=== PATIENT | male | born 1990 | race African-American/Black ===

== ENCOUNTER 2019-07-19 03:41 | Emergency (ER) | payer OTHER ==
[~2019-07-19] VITALS: Ht 180.3 cm; Wt 136.1 kg
[~2019-07-19 03:41] MED LIST: CARAFATE 1 GM TA1 GM PO; FLONASE 0.05%50 MCG NASAL; IBUPROFEN 800800 MG PO; NOHOMEMEDICATIONS; NORCO 5-325 TA1 EACH PO; ONDANSETRON HCL4 M2 PO; PENICILLIN V P500 MG PO; PROTONIX40 MG PO; REGLAN 10 MG TA10 MG PO; REGLAN 5 MG TAB5 M1 PO; TRAMADOL 50 MG50 MG PO; TYLENOL COLD H1 EACH PO
[2019-07-19 03:45] VITALS: BP 153/108
[2019-07-19] MEDS ORDERED: TRAMADOL 50 MG50 MG PO (04:29)
[2019-07-19] MEDS ORDERED: PENICILLIN V P500 MG PO (04:29)
== END 2019-07-19 04:39 | disposition home or self-care (01) ==
LOC: ER 03:41
DX: S02.5XXA Fracture of tooth (traumatic), initial encounter for closed fracture (principal); K04.7 Periapical abscess without sinus; E66.9 Obesity, unspecified; Z91.041 Radiographic dye allergy status; Z91.013 Allergy to seafood; X58.XXXA Exposure to other specified factors, initial encounter; Y93.89 Activity, other specified; Y92.89 Other specified places as the place of occurrence of the external cause; Y99.8 Other external cause status

== ENCOUNTER 2019-10-25 12:49 | Emergency (ER) | payer OTHER ==
[~2019-10-25] VITALS: Ht 177.8 cm; Wt 127.0 kg
[2019-10-25] MEDS ORDERED: CARVEDILOL12.5 MG PO (13:05)
[2019-10-25] MEDS ORDERED: PLAVIX 75 MG TA75 MG PO (13:05)
[2019-10-25] MEDS ORDERED: PRINIVIL20 M1 PO (13:05)
[2019-10-25] MEDS ORDERED: IRON325 PO (13:06)
[2019-10-25] MEDS ORDERED: XARELTO20 MG PO (13:06)
[2019-10-25] MEDS ORDERED: ATORVASTATIN CA80 MG PO (13:06)
[2019-10-25] MEDS ORDERED: TRAMADOL 50 MG50 MG PO (13:31)
[2019-10-25] MEDS ORDERED: CLINDAMYCIN HC300 MG PO (13:31)
[2019-10-25 14:15] VITALS: BP 147/96
== END 2019-10-25 14:59 | disposition home or self-care (01) ==
LOC: ER 12:49
DX: K04.7 Periapical abscess without sinus (principal); I10 Essential (primary) hypertension; E78.5 Hyperlipidemia, unspecified; I25.2 Old myocardial infarction; E66.9 Obesity, unspecified; Z98.61 Coronary angioplasty status; Z86.718 Personal history of other venous thrombosis and embolism; Z79.899 Other long term (current) drug therapy; Z91.041 Radiographic dye allergy status; Z91.013 Allergy to seafood

== ENCOUNTER 2019-11-08 10:11 | Emergency (ER) | payer OTHER ==
[~2019-11-08] VITALS: Ht 177.8 cm; Wt 131.5 kg
[~2019-11-08 10:11] MED LIST changes: +ATORVASTATIN CA80 MG PO; +CARVEDILOL12.5 MG PO; +CLINDAMYCIN HC300 MG PO; +IRON325 PO; +PLAVIX 75 MG TA75 MG PO; +PRINIVIL20 M1 PO; +XARELTO20 MG PO
[2019-11-08 10:28] LABS: ABSOLUTE NEUTROPHILS 7.6 thou/uL (1.4-8.2); BASOPHILS 0.7 % (0.0-2.0); EOSINOPHILS 0.2 % (0.0-3.0); HEMATOCRIT 39.4 % (42.0-52.0); LYMPHOCYTES 13.6 % (24.0-44.0); MCH 28.7 pg (26.0-34.0); MCHC 33.1 g/dL (28.0-37.0); MCV 86.9 fL (80.0-100.0); MONOCYTES 5.4 % (1.0-8.0); PLATELET COUNT 236 thou/uL (150-400); POLYS 80.1 % (36.0-66.0); RBC 4.53 mil/uL (4.50-6.00); RDW 15.9 % (10.5-14.5); WBC 9.5 thou/uL (4.0-11.0)
[2019-11-08 10:32] LABS: CALCIUM 9.7 mg/dL (8.5-10.1); POTASSIUM 3.6 mmol/L (3.5-5.1)
[2019-11-08 10:39] LABS: APTT 25.7 Seconds (24.5-32.8); DIRECT BILIRUBIN 0.2 mg/dL (<0.1-0.2); INR 1.1; PROTIME 10.8 Seconds (9.3-11.4); TOTAL BILIRUBIN 0.6 mg/dL (0.2-1.0)
[2019-11-08 12:01] VITALS: BP 117/66
[2019-11-08] MEDS ORDERED: CARAFATE1 GM PO (12:09)
[2019-11-08] MEDS ORDERED: ZOFRAN ODT4 MG PO (12:09)
[2019-11-08 12:40] LABS: AMP/METHAMP Negative (Negative); BARBITURATES Negative (Negative); BENZODIAZEPINES Negative (Negative); COCAINE Negative (Negative); METHADONE Negative (Negative); OPIATES Negative (Negative); PCP Negative (Negative)
--- NOTE | 2019-11-09 07:51 | EKG ---
[facility] [place] [address] ELECTROCARDIOGRAM REPORT Name: SRINIVASA ART JR Room #: DEP [facility]#: [id number] Admission: 11/08/19 Attend Phys: Discharge: 11/08/19 Date of : [birth year] Report #: [id number] THIS REPORT FOR: cc: BENJAMÍN - Heather family physician/PCP BENJAMÍN - No family physician/PCP Sixto Marley MD [facility] THIS REPORT FOR: //name// [facility] ED Test Date: 2019-11-08 Test Time: 10:10:52 Pat Name: SRINIVASA ART Department: Room: Gender: Tour Guide: [place] : 1990 Requested By: Celina Amador Order Number: [id number] MD: Sixto Marley Measurements Intervals [place] Rate: 78 P: -43 [place]: 143 QRS: -34 QRSD: 96 T: 17 QT: 405 QTc: 462 Interpretive Statements Sinus rhythm Small inferior Q waves Compared to ECG 09/14/2012 00:16:19 Inferior Q waves are now present Electronically Signed On 11-09-2019 7:51:14 CDT by Sixto Marley [email or web address] <ELECTRONICALLY SIGNED> By: Sixto Marley MD, [facility] 11/09/19 0751 1010 1010 Sixto Marley MD, [facility] /EPI
== END 2019-11-08 12:06 | disposition home or self-care (01) ==
LOC: ER 10:11
PROVIDERS: Emergency Medicine
DX: K21.9 Gastro-esophageal reflux disease without esophagitis (principal); K92.0 Hematemesis; R07.9 Chest pain, unspecified; E66.9 Obesity, unspecified; I25.2 Old myocardial infarction; I10 Essential (primary) hypertension; Z86.718 Personal history of other venous thrombosis and embolism; Z79.2 Long term (current) use of antibiotics; Z79.899 Other long term (current) drug therapy; Z91.041 Radiographic dye allergy status; Z91.013 Allergy to seafood

== ENCOUNTER 2019-11-26 15:39 | Inpatient (IN) | payer OTHER ==
[~2019-11-26] VITALS: Ht 180.3 cm; Wt 132.9 kg
[~2019-11-26 15:39] MED LIST changes: +CARAFATE1 GM PO; +ZOFRAN ODT4 MG PO
[2019-11-26 15:47] VITALS: BP 132/80
[2019-11-26 16:24] LABS: ABSOLUTE NEUTROPHILS 5.6 thou/uL (1.4-8.2); BASOPHILS 1.1 % (0.0-2.0); EOSINOPHILS 0.5 % (0.0-3.0); HEMATOCRIT 42.2 % (42.0-52.0); HEMOGLOBIN 13.9 gm/dL (14.0-18.0); LYMPHOCYTES 22.2 % (24.0-44.0); MCH 28.6 pg (26.0-34.0); MCHC 32.9 g/dL (28.0-37.0); MCV 86.8 fL (80.0-100.0); MONOCYTES 7.3 % (1.0-8.0); PLATELET COUNT 249 thou/uL (150-400); POLYS 68.9 % (36.0-66.0); RBC 4.86 mil/uL (4.50-6.00); RDW 16.2 % (10.5-14.5); WBC 8.1 thou/uL (4.0-11.0)
[2019-11-26 16:36] LABS: CALCIUM 9.6 mg/dL (8.5-10.1); CREATININE 1.1 mg/dL (0.7-1.3); POTASSIUM 3.6 mmol/L (3.5-5.1)
[2019-11-26 16:46] LABS: TOTAL BILIRUBIN 0.5 mg/dL (0.2-1.0); TOTAL PROTEIN 8.2 g/dL (6.4-8.2); TROPONIN-I 0.11 ng/mL (<0.06)
[2019-11-26 22:40] VITALS: BP 122/65
[2019-11-26 23:12] LABS: CHOLESTEROL 122 mg/dL (<200); HDL CHOLESTEROL 42 mg/dL (>40); LDL CHOLESTEROL 70 mg/dL (<100); TC:HDL 2.9 Ratio (Not establshd); TRIGLYCERIDE 52 mg/dL (<150); VLDL 10 mg/dL (<40)
[2019-11-26 23:15] LABS: SERUM ASSESSMENT Clear
[2019-11-27] VITALS (7 sets, daily range): BP systolic 104–152; BP diastolic 62–81
[2019-11-27 01:38] LABS: CALCIUM 8.7 mg/dL (8.5-10.1); CREATININE 1.1 mg/dL (0.7-1.3); POTASSIUM 3.4 mmol/L (3.5-5.1)
[2019-11-27 01:53] LABS: HEMATOCRIT 42.8 % (42.0-52.0); MCHC 30.4 g/dL (28.0-37.0); RBC 4.66 mil/uL (4.50-6.00); WBC 6.5 thou/uL (4.0-11.0)
--- NOTE | 2019-11-27 04:07 | NUR ---
PT IS ALERT AND ORIENTED X4. CAME TO HOSPITAL HAVING CHEST PAIN REPORTS IT WAS ON AND OFF ALL DAY. DENIES ANY CHEST PAIN AT THIS TIME. DR. BOBREEN AWARE OF PT PERNELL EPISODE IN ER AND NAUSEA AND HIS TROPONIN LEVELS. HE WILL SEE PT THIS AM. CARDIOLOGY WAS NOTIFIED PER NURSE. LUNGS ARE CLEAR. ABDOMEN IS ROUND BOWEL SOUNDS HYPOACTIVE. VOIDS PER URINAL. HEPARIN DRIP ON CURRENTLY. HAS HAD A CLOT IN HIS LEFT LEG. WILL CONTINUE TO ASSESS AND MONITOR PER NURSING.
--- NOTE | 2019-11-27 08:18 | EKG ---
[facility] [place] [address] ELECTROCARDIOGRAM REPORT Name: SRINIVASA ART Room #: 208-P ADM IN M.R.#: [id number] Admission: 11/26/19 Attend Phys: Jonatan Yoo MD Discharge: Date of : [birth year] Report #: [id number] THIS REPORT FOR: cc: FAM - Family physician unknown FAM - Family physician unknown Nicho Hammer MD ~ THIS REPORT FOR: //name// [facility] ED Test Date: 2019-11-26 Test Time: 22:42:15 Pat Name: SRINIVASA ART Department: Room: 208 Gender: M Herpetologist: DARION : 1990 Requested By: Steve Kelly Order Number: [id number] MD: Nicho Hammer Measurements Intervals [place] Rate: 65 P: 3 [place]: 156 QRS: -35 QRSD: 92 T: 6 QT: 403 QTc: 419 Interpretive Statements Sinus arrhythmia Inferior infarct, old Lateral leads are also involved Baseline wander in lead(s) V1 Compared to ECG 11/08/2019 10:10:52 Electronically Signed On 11-27-2019 8:18:30 CDT by Nicho Hammer [email or web address] <ELECTRONICALLY SIGNED> By: Nicho Hammer MD 11/27/19817 41 41 Nicho Hammer MD /EPI
--- NOTE | 2019-11-27 08:21 | EKG ---
[facility] [place] [address] ELECTROCARDIOGRAM REPORT Name: SRINIVASA ART Room #: 208-P ADM IN M.R.#: [id number] Admission: 11/26/19 Attend Phys: Jonatan Yoo MD Discharge: Date of : [birth year] Report #: [id number] THIS REPORT FOR: cc: FAM - Family physician unknown FAM - Family physician unknown Nicho Hammer MD ~ THIS REPORT FOR: //name// 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
--- NOTE | 2019-11-27 14:26 | EKG ---
[facility] [place] [address] ELECTROCARDIOGRAM REPORT Name: SRINIVASA ART Room #: 208-P ADM IN M.R.#: [id number] Admission: 11/26/19 Attend Phys: Jonatan Yoo MD Discharge: Date of : [birth year] Report #: [id number] THIS REPORT FOR: cc: FAM - Family physician unknown FAM - Family physician unknown Nicho Hammer MD ~ THIS REPORT FOR: //name// [facility] ED Test Date: 2019-11-26 Test Time: 15:45:17 Pat Name: SRINIVASA ART Department: Room: 208 P Gender: M Small Brake Form Operator: faviola : 1990 Requested By: Jonatan Yoo Order Number: [id number] MD: Nicho Hammer Measurements Intervals [place] Rate: 90 P: 37 [place]: 152 QRS: -27 QRSD: 91 T: 30 QT: 368 QTc: 451 Interpretive Statements Sinus rhythm Compared to ECG 11/08/2019 10:10:52 Electronically Signed On 11-27-2019 14:26:14 CDT by Nicho Hammer [email or web address] <ELECTRONICALLY SIGNED> By: Nicho Hammer MD 11/27/19 1426 1545 1545 Nicho Hammer MD /[facility]
[2019-11-27 18:02] LABS: PROTIME 10.7 Seconds (9.3-11.4)
[2019-11-27 18:09] LABS: APTT 77.2 Seconds (24.5-32.8)
--- NOTE | 2019-11-27 18:41 | NUR ---
ASSESSMENT CHARTED. PT ALERT AND ORIENTED. ON HEPARIN GTT. SB TO SR ON TELE. NPO AFTER MIDNIGHT FOR CATH IN AM. DENIED HAVING PAIN OR DISCOMFORT. WILL CONTINUE TO MONITOR.
[2019-11-28] VITALS (13 sets, daily range): BP systolic 113–140; BP diastolic 49–88
--- NOTE | 2019-11-28 07:27 | NUR ---
NPO SINCE MIDNIGHT FOR A POSSIBLE CATH TODAY.HEPARIN GTT TITRATED.2 THERAPEUTIC PTT RESULT SO FAR.ELEVATED TROPONIN BUT DENIES CHEST PAIN.DEBT RECOVERY OFFICER IS AWARE.MONITOR SHOWS PERNELL.POC CONTINUED.
[2019-11-28] MEDS ORDERED: IMDUR 30 MG TAB30 M1 PO (13:12)
[2019-11-28] MEDS ORDERED: ATORVASTATIN CA80 MG PO (13:12)
[2019-11-28] MEDS ORDERED: ASPIR 8181 MG PO (13:12)
--- NOTE | 2019-11-28 14:15 | NUR ---
Patient admits with chest pain. Patient reports since COVID in/out of work. 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 Patient has 4 children under the age of 8. Patient has no health insurance. Patient in cardiac cath this am no intervention. patient to [place]. Planned to vouch medications that scripts were sent to [facility]. Sp with [facility] pharmacy to send scripts back to [facility]. Person at [facility] questioned why, discussed plan to vouch medications. Person on line at [facility] is patients sister she reports casemgt to tell her brother to keep medications at pharmacy and they will help. updated patient. Resources given for [facility] clinics.
--- NOTE | 2019-11-28 16:29 | CATHLAB ---
[facility] [address] [place] [address] INVASIVE PROCEDURE REPORT Name: SRINIVASA ART JR Room #: 208-P ADM IN M.R.#: [id number] Admission: 11/26/19 Attend Phys: Jonatan Yoo MD Discharge: Date of : [birth year] Report #: [id number] THIS REPORT FOR: cc: FAM - Family physician unknown FAM - Family physician unknown Jerman Borden MD ~ APPROVED REPORT Study performed: 11/28/2019 11:01:50 Patient Details Patient Status: In-Patient Room #: The patient is a 29 year-old male Event Personnel Jerman Borden Paediatric Thoracic Physician, Anamika Pinon RTR, STEMHOLE BORER AND TOPPER Monitor, Kristi Contreras RN, Mario Alberto Draper RN RN, Lenny Chapa RTR Scrub Procedures Performed Art Access - R femoral artery* Left Heart Cath w/or w/o Coronaries 1642135 [facility] [address] Initial Mod Sed Same Phys/QHP Gr5y 954652 Hemostasis with Manual pressure 00880 Mod Sed Same Phys/QHP Ea 231797 Indication Dyspnea, Chest pain, The patient was noted to have minimal troponin elevation. Risk Factors Family History, Hypercholesterolemia, Coronary Artery DiseaseHypertension Previous Procedures/Diagnoses Previous PCI, Previous FL Procedure Narrative The Right Groin^ was infiltrated with 1% Lidocaine subcutaneous anesthesia. A PINNACLE 4FR Sheath #[id number] sheath was inserted into the RFA^. Coronary angiography was performed using coronary diagnostic catheters. The right coronary system was accessed and visualized with a 4FR 3DRC #[id number] catheter. The left coronary system was accessed and visualized with a JL4 catheter. The left ventricle was accessed and visualized with a ANGLED PIGTAIL catheter. Left [facility] [address] [place] [address] INVASIVE PROCEDURE REPORT Name: SRINIVASA ART JR Room #: 208-P [facility] IN [facility].#: [id number] Admission: 11/26/19 Attend Phys: Jonatan Yoo MD Discharge: Date of : [birth year] Report #: [id number] ventricular/Aortic Valve gradient assessed via catheter pullback. Left ventriculogram was performed in 30 degree projection. Hemostasis was obtained with manual pressure following sheath removal without any complications. The patient tolerated the procedure well and there were no complications associated with the procedure. There was no hematoma. Intraoperative Conscious Sedation Sedation start time: 11:34 Case end Time: 12:07 Fentanyl 100 mcg Versed 2 mg Fluoro Time: 6.30 minutes Dose: DAP 48031.00 cGycm2 2195 mGy Contrast Type and Amount: Omnipaque 110 ml Coronary Angiography The patient's coronary anatomy is right dominant. Diagnostic Cath Left Main The left main is a large-caliber vessel, patent with no flow-limiting lesions. LAD The LAD is a moderate-sized caliber vessel, traverses the anterior wall and wraps around the apex. This vessel is patent. Diagonal 1 This is a patent vessel, with no flow-limiting lesions. Circumflex This is a moderate-sized caliber vessel, patent with no flow-limiting lesions. OM1 This is a patent vessel, with no flow-limiting lesions. OM2 This is a patent vessel, with no flow-limiting lesions. Right Coronary There is a stent in the proximal segment with mild restenosis within the midportion of the stent. At the proximal edge of the stent, there is a vasospastic component. Initially appeared to be a severe stenosis, but resolved with IC nitroglycerin. R PDA This is a patent vessel, with no flow-limiting lesions. RPLV This is a patent vessel, with no flow-limiting lesions. Left Ventriculography The left ventricle is normal in size with Decreased contractility. The left ventricular ejection fraction is estimated to be 45-50%. There is mild hypokinesis of the mid to apical inferior segment. [facility] [address] [place] [address] INVASIVE PROCEDURE REPORT Name: SRINIVASA ART JR Room #: 208-P [facility] IN .R.#: [id number] Admission: 11/26/19 Attend Phys: Jonatan Yoo MD Discharge: Date of : [birth year] Report #: [id number] Hemodynamics The aortic pressure is 120/85 mmHg with a mean of 99 mmHg. The left ventricular pressure is 120/8 mmHg with a mean of mmHg. The left ventricular end diastolic pressure is 13 mmHg. Conclusion 1. There is a patent stent in the proximal RCA with mild restenosis. 2. There is a vasospastic component involving the proximal edge of the RCA stent, recommend long-acting nitrates. 3. There is mild LV dysfunction. 4. Recommend guideline directed medical therapy. <ELECTRONICALLY SIGNED> By: Jerman Borden MD 11/28/19 1629 1629 1629 Jerman Borden MD /INF
== END 2019-11-28 18:46 | disposition home or self-care (01) | DRG 281 ==
LOC: ER 15:39 → EROBS 18:35 → 2N 18:35
PROVIDERS: Nurse Practitioner Family; Physician Assistant; ADMIT Internal Medicine; ATTEND Internal Medicine
PROC: B2111ZZ Fluoroscopy of Multiple Coronary Arteries using Low Osmolar Contrast (ICD-10-PCS; principal; 2019-11-28)
PROC: B2151ZZ Fluoroscopy of Left Heart using Low Osmolar Contrast (ICD-10-PCS; principal; 2019-11-28)
PROC: 4A023N7 Measurement of Cardiac Sampling and Pressure, Left Heart, Percutaneous Approach (ICD-10-PCS; principal; 2019-11-28)
DX: I21.4 Non-ST elevation (NSTEMI) myocardial infarction (principal); D68.59 Other primary thrombophilia; Z68.41 Body mass index [BMI] 40.0-44.9, adult; I10 Essential (primary) hypertension; I25.10 Atherosclerotic heart disease of native coronary artery without angina pectoris; I73.9 Peripheral vascular disease, unspecified; E66.01 Morbid (severe) obesity due to excess calories; K27.9 Peptic ulcer, site unspecified, unspecified as acute or chronic, without hemorrhage or perforation; Z20.828 Contact with and (suspected) exposure to other viral communicable diseases; I25.2 Old myocardial infarction; Z86.718 Personal history of other venous thrombosis and embolism; Z91.041 Radiographic dye allergy status; Z91.013 Allergy to seafood; Z87.891 Personal history of nicotine dependence; Z95.5 Presence of coronary angioplasty implant and graft; Z83.3 Family history of diabetes mellitus; Z82.49 Family history of ischemic heart disease and other diseases of the circulatory system; Z82.3 Family history of stroke; Z91.14 Patient's other noncompliance with medication regimen; Z72.89 Other problems related to lifestyle
CPT/HCPCS: 10081

== ENCOUNTER 2020-01-10 05:40 | Inpatient (IN) | payer OTHER ==
[~2020-01-10] VITALS: Ht 177.8 cm; Wt 131.1 kg
[~2020-01-10 05:40] MED LIST changes: +ASPIR 8181 MG PO; +IMDUR 30 MG TAB30 M1 PO
[2020-01-10 05:59] VITALS: BP 188/96
[2020-01-10 06:07] LABS: ABSOLUTE NEUTROPHILS 7.5 thou/uL (1.4-8.2); BASOPHILS 0.7 % (0.0-2.0); EOSINOPHILS 1.7 % (0.0-3.0); HEMATOCRIT 44.9 % (42.0-52.0); HEMOGLOBIN 14.4 gm/dL (14.0-18.0); LYMPHOCYTES 23.6 % (24.0-44.0); MCH 28.4 pg (26.0-34.0); MCV 88.9 fL (80.0-100.0); MONOCYTES 7.3 % (1.0-8.0); PLATELET COUNT 238 thou/uL (150-400); POLYS 66.7 % (36.0-66.0); RBC 5.05 mil/uL (4.50-6.00); RDW 17.2 % (10.5-14.5); WBC 11.2 thou/uL (4.0-11.0)
[2020-01-10 06:16] LABS: ANION GAP 17 mmol/L (7-16); BUN 10 mg/dL (7-18); CALCIUM 9.3 mg/dL (8.5-10.1); CHLORIDE 100 mmol/L (98-107); CO2 21 mmol/L (21-32); CREATININE 0.9 mg/dL (0.7-1.3); GLUCOSE 155 mg/dL (74-106); POTASSIUM 3.2 mmol/L (3.5-5.1); SODIUM 138 mmol/L (136-145)
[2020-01-10 06:21] LABS: TROPONIN-I <0.06 ng/mL (<0.06)
[2020-01-10 07:07] VITALS: BP 150/85
[2020-01-10 07:38] LABS: AMP/METHAMP Negative (Negative); BARBITURATES Negative (Negative); BENZODIAZEPINES Negative (Negative); COCAINE Negative (Negative); METHADONE Negative (Negative); OPIATES POSITIVE (Negative); PCP Negative (Negative)
--- NOTE | 2020-01-10 08:50 | NUR ---
PT BROUGHT TO CV ROOM 5 FROM NICKEL PLATER. INTEGRILLIN INFUSING AT 20CC/HR WT BASED. NITRO INFUSING AT 10MCG PER DR ROQUE. PT TOLERATED PROCEDURE WELL. DRESSING TO RT GROIN C/D/I, SOFT TO PALPATION. HEMOSTASIS AT 0832.
--- NOTE | 2020-01-10 10:59 | 2DMMODE ---
[facility] [address] [place] [address] 2 D/M-MODE ECHOCARDIOGRAM Name: SRINIVASA ART Room #: 160-1 ADM IN M.R.#: [id number] Admission: 01/10/20 Attend Phys: Irvin Alvarez MD, Discharge: Date of : [birth year] Report #: [id number] THIS REPORT FOR: cc: FAM - Family physician unknown FAM - Family physician unknown Jerman Borden MD ~ APPROVED REPORT Study performed: 01/10/2020 09:58:40 EXAM: Comprehensive 2D, Doppler, and color-flow Echocardiogram Patient Location: CV holding Status: routine BSA: 2.25 HR: 59 bpm BP: 150/85 mmHg Rhythm: NSR Other Information Study Quality: Adequate/morbid obesity Indications CAD Chest Pain Hx: PR, PCI, ETOH abuse. 2D Dimensions RVDd: 35.23 mm IVSd: 14.00 (7-11mm) LVOT Diam: 23.33 (18-24mm) LVDd: 55.38 mm PWd: 13.21 (7-11mm) Ascending Ao: 34.23 (22-36mm) LVDs: 42.31 (25-40mm) Aortic Root: 34.85 mm Volumes Left Atrial Volume (Systole) Single Plane 4CH: 37.83 mL Single Plane 2CH: 56.16 mL LA ESV Index: 23.00 mL/m2 Aortic Valve AoV Peak Alejandro.: 1.44 m/s AO Peak Gr.: 8.29 mmHg LVOT Max P.67 mmHg LVOT Max V: 1.19 m/s [facility] [email or web address] [address] 2 D/M-MODE ECHOCARDIOGRAM Name: SRINIVASA ART Room #: 160-1 ADM IN M.R.#: [id number] Admission: 01/10/20 Attend Phys: Irvin Alvarez, Discharge: Date of : [birth year] Report #: [id number] Vmax: 3.54 cm2 Mitral Valve E/A Ratio: 1.3 MV Decel. Time: 294.77 ms MV E Max Alejandro.: 0.67 m/s MV A Alejandro.: 0.52 m/s MV PHT: 85.48 ms IVRT: 78.43 ms Pulmonary Valve PV Peak Alejandro.: 1.17 m/s PV Peak Gr.: 5.49 mmHg Pulmonary Vein P Vein S: 0.56 m/s P Vein A: 0.25 m/s P Vein D: 0.40 m/s P Vein A Dur.: 138.4 msec P Vein S/D Ratio: 1.40 Tricuspid Valve TR Peak Alejandro.: 1.72 m/s TR Peak Gr.: 12.00 mmHg PA Pressure: 17.00 mmHg Left Ventricle The left ventricle is normal size. There is hypokinesis of the mid to basal inferior wall. Mild concentric left ventricular hypertrophy. Left ventricular systolic function is normal. LVEF is 50-55%. The left ventricular diastolic function is normal. Right Ventricle The right ventricle is normal size. The right ventricular systolic function is normal. Atria The left atrium size is normal. The right atrium size is normal. Aortic Valve The aortic valve is normal in structure. Trace aortic regurgitation. There is no aortic valvular stenosis. Mitral Valve The mitral valve is normal in structure. There is no mitral valve regurgitation noted. No evidence of mitral valve stenosis. Tricuspid Valve [facility] [address] [place] [address] 2 D/M-MODE ECHOCARDIOGRAM Name: SRINIVASA ART Room #: 160-1 ADM IN M.R.#: [id number] Admission: 01/10/20 Attend Phys: Irvin Alvarez, Discharge: Date of : [birth year] Report #: [id number] The tricuspid valve is normal in structure. Trace tricuspid regurgitation. Estimated PAP 15-20mmHg. Pulmonic Valve The pulmonary valve is normal in structure. Mild pulmonic regurgitation. Great Vessels The aortic root is normal in size. The ascending aorta is normal in size. IVC is normal in size and collapses >50% with inspiration. Pericardium There is no pericardial effusion. <Conclusion> The left ventricle is normal size. Mild concentric left ventricular hypertrophy. Left ventricular systolic function is normal. There is hypokinesis of the mid to basal inferior wall. The right ventricle is normal size. The left atrium size is normal. Trace aortic regurgitation. The mitral valve is normal in structure. Trace tricuspid regurgitation. Estimated PAP 15-20mmHg. <ELECTRONICALLY SIGNED> By: Jerman Borden MD 01/10/20 1058 Jerman Borden MD /INF
--- NOTE | 2020-01-10 15:05 | NUR ---
LATE ENTRY. 1300 INTEGRILIN COMPLETED AND STOPPED. STATES HEADACHE IMPROVED. DOZING ON AND OFF AND CHEST PAIN MOSTLY GONE
--- NOTE | 2020-01-10 16:14 | EKG ---
[facility] [place] [address] ELECTROCARDIOGRAM REPORT Name: SRINIVASA ART Room #: 160-1 ADM IN M.R.#: [id number] Admission: 01/10/20 Attend Phys: Irvin Alvarez MD, Discharge: Date of : [birth year] Report #: [id number] THIS REPORT FOR: cc: FAM - Family physician unknown FAM - Family physician unknown Erwin Li MD [facility] ~ THIS REPORT FOR: //name// [facility] ED Test Date: 2020-01-10 Test Time: 05:42:37 Pat Name: SRINIVASA ART Department: Room: Gender: Endo Tech: [place] [id number] : 1990 Requested By: Mele Higgins Order Number: [id number] MD: Erwin Li Measurements Intervals [place] Rate: 87 P: 37 [place]: 181 QRS: -42 QRSD: 96 T: 88 QT: 356 QTc: 429 Interpretive Statements Sinus rhythm ST elevation Inferior leads, suggest recent infarct Compared to ECG 11/27/2019 08:07:55 Q waves inferior leads previously present ST (T wave) deviation no longer present Electronically Signed On 01-10-2020 16:13:56 CDT by Erwin Li [email or web address] <ELECTRONICALLY SIGNED> By: Erwin Li MD, [facility] 01/10/20 1613 0542 0542 Erwin Li MD, [facility] /EPI
--- NOTE | 2020-01-10 16:15 | EKG ---
[facility] [place] [address] ELECTROCARDIOGRAM REPORT Name: SRINIVASA ART Room #: 160-1 ADM IN M.R.#: [id number] Admission: 01/10/20 Attend Phys: Irvin Alvarez MD, Discharge: Date of : [birth year] Report #: [id number] THIS REPORT FOR: cc: FAM - Family physician unknown FAM - Family physician unknown Erwin Li MD [facility] ~ THIS REPORT FOR: //name// [facility] ED Test Date: 2020-01-10 Test Time: 06:17:29 Pat Name: SRINIVASA ART Department: Room: Gender: Bartender Helper: nikkie : 1990 Requested By: Mele Higgins Order Number: [id number] MD: Erwin Li Measurements Intervals [place] Rate: 61 P: 21 [place]: 151 QRS: -23 QRSD: 96 T: 9 QT: 396 QTc: 399 Interpretive Statements Sinus rhythm Inferior infarct, possibly recent Compared to ECG 01/10/2020 05:42:37 No significant changes Electronically Signed On 01-10-2020 16:15:44 CDT by Erwin Li [email or web address] <ELECTRONICALLY SIGNED> By: Erwin Li MD, FACC 01/10/20 1615 0617 0617 Erwin Li MD, [facility] /EPI
[2020-01-10 17:45] VITALS: BP 157/107
[2020-01-10 20:21] VITALS: BP 136/64
[2020-01-10 23:23] VITALS: BP 141/74
[2020-01-11 03:58] VITALS: BP 118/70
--- NOTE | 2020-01-11 04:53 | NUR ---
SLEPT PART OF SHIFT. UP AD COOKIE IN ROOM WITH STEADY GAIT. RIGHT GROIN SITE POST CATH DSG CLEAN, DRY AND INTACT. SITE WITHOUT BLEEDING OR HEMOTOMA. WORKING ON GOALS AND PLAN OF CARE FOR NOC. PROGRESSING TOWARDS DISCHARGE GOALS. PLAN TO SPEAK WITH CASE MANAGMENT TO ASSIST WITH MEDICATION COMPLIANCE. CONTINUE TO ASSES CLOSELY.
[2020-01-11 05:56] LABS: HEMATOCRIT 43.2 % (42.0-52.0); HEMOGLOBIN 13.9 gm/dL (14.0-18.0); MCH 29.1 pg (26.0-34.0); MCHC 32.3 g/dL (28.0-37.0); MCV 90.1 fL (80.0-100.0); RBC 4.79 mil/uL (4.50-6.00); RDW 17.2 % (10.5-14.5); WBC 9.5 thou/uL (4.0-11.0)
[2020-01-11 06:55] LABS: ALBUMIN 3.6 g/dL (3.4-5.0); ANION GAP 10 mmol/L (7-16); BUN 7 mg/dL (7-18); CHLORIDE 103 mmol/L (98-107); CHOLESTEROL 145 mg/dL (<200); CO2 26 mmol/L (21-32); GLUCOSE 98 mg/dL (74-106); HDL CHOLESTEROL 60 mg/dL (>40); LDL CHOLESTEROL 72 mg/dL (<100); POTASSIUM 3.9 mmol/L (3.5-5.1); SGOT 115 U/L (15-37); SGPT 43 U/L (30-65); SODIUM 139 mmol/L (136-145); TC:HDL 2.4 Ratio (Not establshd); TOTAL BILIRUBIN 0.7 mg/dL (0.2-1.0); TOTAL PROTEIN 7.7 g/dL (6.4-8.2); TRIGLYCERIDE 68 mg/dL (<150); VLDL 14 mg/dL (<40)
[2020-01-11 07:10] VITALS: BP 129/76
[2020-01-11 07:12] LABS: TROPONIN-I 16.48 ng/mL (<0.06)
[2020-01-11] MEDS ORDERED: EFFIENT10 MG PO (07:59)
[2020-01-11] MEDS ORDERED: ASPIR 8181 MG PO (07:59)
[2020-01-11] MEDS ORDERED: METOPROLOL SUCC50 MG PO (07:59)
[2020-01-11] MEDS ORDERED: DILTIAZEM ER240 M1 PO (08:13)
[2020-01-11] MEDS ORDERED: IMDUR 30 MG TAB30 M1 PO (08:13)
--- NOTE | 2020-01-11 08:25 | EKG ---
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
--- NOTE | 2020-01-11 09:39 | HC ---
[facility] [place] [address] CONSULTATION Name: SRINIVASA ART Room #: 218-P [facility] IN M.R.#: [id number] Admission: 01/10/20 Attend Phys: Irvin Alvarez MD, Discharge: Date of : [birth year] Report #: [id number] THIS REPORT FOR: cc: BENJAMÍN - Family physician unknown BENJAMÍN - Family physician unknown Irvin Alvarez MD [facility] ~ CC: BENJAMÍN unknown Irvin Alvarez DATE OF SERVICE: 01/10/2020 HISTORY OF PRESENT ILLNESS: The patient is a 29-year-old male who states he was trying to go to bed early this a.m., had some severe substernal chest pain and pressure. Reviewing his history, he has had coronary spasm and has had a prior right coronary stent, but he was taken to the catheterization lab on 11/26/2019. At that time, he had minimal restenosis in the stent and coronary spasm along the edge of the stent. No intervention was undertaken. He was recommended nitrates and calcium-channel blockers. He states he ran out of these medicines, although these are generic and very inexpensive medicines over 30 days ago. He denies taking any vasoconstrictive medications such as Sudafed, Afrin, cocaine or methamphetamine, so thus taking no medications. Also, supposed to have been on atorvastatin. His other meds were lisinopril, Plavix, carvedilol 12.5 twice a day, Xarelto. It is not clear why he has been on Xarelto and he cannot answer that question. He is still having discomfort despite sublingual nitro and nitro drip. EKG does show some improvement in the subtle ST elevation in the inferior leads. He has a Q-wave in the inferior lead. He is tearful. ALLERGIES: IODINE AND SHELLFISH. SOCIAL HISTORY: He apparently lives with his girlfriend and has children. Tobacco use, alcohol use, he denies drug use. Drug screen is pending. 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 FAMILY HISTORY: He is not able to comment on that, he is not sure. He needs Solu-Medrol and Benadryl 125 and 25, APPARENTLY A SHELLFISH ALLERGY. PHYSICAL EXAMINATION: GENERAL: Mild amount of distress. He is tearful, but he states his pain is better. VITAL SIGNS: Blood pressure initially was 180/90, now it is 160/90. Pulse is [facility] [address] [place] [address] CONSULTATION Name: SRINIVASA ART Room #: [address] [place] [address] [place] [facility].#: [id number] Admission: 01/10/20 Attend Phys: Irvin Alvarez MD, Discharge: Date of : 88 Report #: [id number]. HEENT: Eyes reveal xanthelasmas. Pharynx is clear. NECK: Shows preserved upstrokes without JVD or bruits. LUNGS: Clear. CARDIOVASCULAR: Regular rate and rhythm, S1, S2, distant. ABDOMEN: Obese, nontender. EXTREMITIES: No edema. Pulses intact. NEUROLOGIC: Nonfocal. SKIN: Warm and dry without xanthoma or ulcer. MUSCULOSKELETAL: No gross joint deformity. ASSESSMENT: 1. ST-elevation myocardial infarction consistent with coronary spasm by history, right coronary artery inferior wall ST elevation, although improved. 2. Coronary artery disease with a history of a stent previously, but recent catheterization shows minimal restenosis and coronary spasm in November of this year. 3. Hypertension. 4. Mild ischemic cardiomyopathy with an area of inferior apical hypokinesis. 5. Noncompliance. 6. History of tobacco and alcohol use. RECOMMENDATIONS AND PLAN: We have nitro drip, sublingual nitro, aspirin and statin. We will proceed to the catheterization lab to delineate the anatomy. Perhaps intracoronary nitroglycerin may be indicated. I do not suspect there will be intervention indicated after the recent catheterization 1 month ago. Alternatives were discussed with him. He does elect to proceed. Thank you for asking me to assist in the care of this patient. <ELECTRONICALLY SIGNED> By: Irvin Alvarez MD, FACC 01/11/20 0939 0712 1252 Irvin Alvarez MD, FACC /nt
[2020-01-11 10:03] VITALS: BP 129/76
--- NOTE | 2020-01-11 12:58 | NUR ---
PT CARE ASSUMED APPROX 0700. ASSESSMENTS CHARTED. PT DENIES PAIN AND SOA. VSS. UP WTIH STEADY GAIT. ODALIS CHEF'S ASSISTANT NOTIFIED OF ELEVATED BP. NO NEW ORDERS. BP SLOWLY IMPROVING. APPETITE POOR. MEDS COMPED AND GIVEN TO PT. DISCHARGE EDUCATION DONE BY CV AND CV GARETH, REINFORCED BY CV COVERED BUCKLE ASSEMBLER AND THIS RN. PT DENIES QUESTIONS OR CONCERNS REGARDING POST HOSPITAL CARES. IV OUT, TELE OFF. PT WAITING ON TRANSPORTATION AT THIS TIME. WILL ESCORT OUT ITMELY.
--- NOTE | 2020-01-11 13:22 | NUR ---
Met with patient who recently discharged 12/13 from [facility]. At that time vouched for xeralto $800. Per pharmacy patient left with his 30 day supply he never returned for the rest of xeralto. He called pharmacy last week and they told him medication ready to be picked up but patient never picked up. Patient admits with AFIB/RVR. Patient to dc today. Vouched medications in amount of $137.99. Arranged apt for patient at [facility] for Jan 14 at 3pm. Alerted to patient he needs to pay $25 at apt time. Faxed clinic to [facility] at [phone]. 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
--- NOTE | 2020-01-12 16:56 | CATHLAB ---
[facility] [place] [address] INVASIVE PROCEDURE REPORT Name: SRINIVASA ART Room #: 218-P [facility] IN M.R.#: [id number] Admission: 01/10/20 Attend Phys: Irvin Alvarez MD, Discharge: 01/11/20 Date of : [birth year] Report #: [id number] THIS REPORT FOR: cc: FAM - Family physician unknown FAM - Family physician unknown Irvin Alvarez MD [facility] ~ APPROVED REPORT Study performed: 01/10/2020 07:19:11 Patient Details Patient Status: In-Patient Room #: The patient is a 29 year-old male Event Personnel Irvin Alvarez Forensic Social Worker, Melissa Marcus RN RN, Jaimie Stout Monitor, Silvia Vicente RTMartina Scrub Procedures Performed Art Access - R femoral artery* 63077 Initial Mod Sed Same Phys/QHP Gr5y 903384 01727 Mod Sed Same Phys/QHP Ea 584942 Left Heart Cath w/or w/o Coronaries 8306864 LHC PTCA Single Vessel RCA 3537849 PCISINGLE Hemostasis w/ Mynx Indication Chest pain Procedure Narrative The patient was brought emergently to the Cardiac Catheterization Laboratory and was prepped and draped in a sterile manner. The Right Groin^ was infiltrated with 1% Lidocaine subcutaneous anesthesia. A PINNACLE 6FR Sheath #[id number] sheath was inserted into the RFA^. Coronary angiography was performed using coronary diagnostic catheters. The right coronary system was accessed and visualized with a JR 4 catheter. The left coronary system was accessed and visualized with a JL 4 catheter. The left ventricle was accessed and visualized with a Pigtail catheter. Left ventriculogram was performed in CANDELARIA projection. Closure device was deployed with a 6 Fr Mynx. The patient tolerated the procedure well and there were no complications associated with the procedure. There was no hematoma. Intraoperative Conscious Sedation Sedation start time: 07:43 Case end Time: 08:35 [facility] [place] [address] INVASIVE PROCEDURE REPORT Name: SRINIVASA ART Room #: 218-P [facility] IN M.R.#: [id number] Admission: 01/10/20 Attend Phys: Irvin Alvarez, Discharge: 01/11/20 Date of : [birth year] Report #: [id number] Fluoro Time: 7.60 minutes Dose: DAP 79962.00 cGycm2 3109 mGy Contrast Type and Amount: Visipaque 180 ml Hemodynamics The aortic pressure is 204/107 mmHg with a mean of 136 mmHg. The left ventricular pressure is 206/6 mmHg with a mean of mmHg. The left ventricular end diastolic pressure is 26 mmHg. PCI Technique Lesion Percutaneous coronary intervention was performed on the proximal right coronary artery. A Medtronic JR 4 Guide Catheter was used to engage the RCA ostium. A Luge Interventional Guidewire was used to cross the lesion. BALLOON DILATION A Balloon catheter Sprinter OTW 3.5 x 20 was inserted and inflated up to 12.00atm for 15seconds. Additional Inflation: 18.00atm for 10seconds. Additional Inflation: 20.00atm for 21seconds. Conclusion #1. Successful PTCA stent of a 100% in-stent occlusion thrombotic in nature. Possibly precipitated by coronary spasm proximal to previously placed stents and noncompliance. This area dilated with a 3.5 mm balloon to 20 nelson RUDOLPH grade III flow no residual no residual thrombus with the exception of the distal posterior lateral branch which had a small distribution on prior catheterization. #2 left main large and free of disease giving rise to LAD and circumflex #3 LAD is widely patent extends to the apex. #4 circumflex OM nondominant but moderate distribution no occlusive disease #5 normal left jugular size with inferior basilar hypokinesis EF is 45% range Recommendations and plan: Patient is improved hemodynamically stable and pain-free. This precipitated by a history of coronary spasm which could have precipitated and his complete noncompliance of medications all antiplatelet statin and blood pressure therapy all [facility] [address] [place] [address] INVASIVE PROCEDURE REPORT Name: ARTSRINIVASA Room #: 218-P [facility] IN M.R.#: [id number] Admission: 01/10/20 Attend Phys: Irvin Alvarez, Discharge: 01/11/20 Date of : [birth year] Report #: [id number] stopped. Transfer to CCU follow post coronary stent protocol <ELECTRONICALLY SIGNED> By: Irvin Alvarez MD, FAC 01/12/201655 55 55 Irvin Alvarez MD, FAC /INF
== END 2020-01-11 13:00 | disposition home or self-care (01) | DRG 246 ==
LOC: ER 05:40 → TBACV 07:39 → 2N 17:31
PROVIDERS: Emergency Medicine; ADMIT Internal Medicine Cardiovascular Disease; ATTEND Internal Medicine Cardiovascular Disease
PROC: 4A023N7 Measurement of Cardiac Sampling and Pressure, Left Heart, Percutaneous Approach (ICD-10-PCS; principal; 2020-01-10)
PROC: B215YZZ Fluoroscopy of Left Heart using Other Contrast (ICD-10-PCS; principal; 2020-01-10)
PROC: 027034Z Dilation of Coronary Artery, One Artery with Drug-eluting Intraluminal Device, Percutaneous Approach (ICD-10-PCS; principal; 2020-01-10)
PROC: B211YZZ Fluoroscopy of Multiple Coronary Arteries using Other Contrast (ICD-10-PCS; principal; 2020-01-10)
DX: T82.855A Stenosis of coronary artery stent, initial encounter (principal); I21.3 ST elevation (STEMI) myocardial infarction of unspecified site; Z68.41 Body mass index [BMI] 40.0-44.9, adult; E66.9 Obesity, unspecified; I10 Essential (primary) hypertension; I25.5 Ischemic cardiomyopathy; I25.10 Atherosclerotic heart disease of native coronary artery without angina pectoris; I73.9 Peripheral vascular disease, unspecified; I25.2 Old myocardial infarction; Z86.718 Personal history of other venous thrombosis and embolism; Z91.041 Radiographic dye allergy status; Z91.013 Allergy to seafood; Z87.891 Personal history of nicotine dependence; Z95.5 Presence of coronary angioplasty implant and graft; Z91.14 Patient's other noncompliance with medication regimen; Z79.82 Long term (current) use of aspirin; Z79.899 Other long term (current) drug therapy
CPT/HCPCS: 10081

== ENCOUNTER 2021-06-03 05:30 | Observation (INO) | payer OTHER ==
[~2021-06-03] VITALS: Ht 180.3 cm; Wt 134.3 kg
--- NOTE | ~2021-06-03 | EMS ---
[place] [address] EMS Patient Care Report Name: SRINIVASA ART JR Room #: PRE M.RJerel#: [id number] Admission: Attend Phys: Discharge: Date of : [birth year] Report #: [id number] THIS REPORT FOR: //name// Report Transmitted: 06/03/2021 06:13 EMS Care Summary [place], [place]/[facility] Incident [id number] @ 06/03/2021 04:46 Incident Location [address] [place] [address] Patient SRINIVASA ART Male, 31 Years 1990 Patient Address [address] [place] [address] Patient History Hypertension (HTN),Hyperlipidemia,Cardiac Condition - Other,Cardiac - Stent,Deep Vein Thrombosis,Myocardial Infarction (NE), Patient Allergies Shellfish allergy, Patient Medications Aspirin, Nitroglycerin, Chief Complaint CHEST PAIN Disposition Transported No Lights/Elizabeth Dispatch Reason Chest Pain (Non-Traumatic) Transported To [facility] Narrative DISPATCHED EMERGENCY ON A CHEST PAIN. PUMPER 42 ON SCENE UPON ARRIVAL. 31 Y/O MALE BEING WALKED OUT OF HOUSE WITHOUT INCIDENT AND APPEARING IN NO IMMEDIATE DISTRESS. GCS 15 AND A/OX4. PT HAS CONSENTED FOR [place] AND [place] [address] EMS Patient Care Report Name: SRINIVASA ART JR Room #: PRE Reba#: [id number] Admission: Attend Phys: Discharge: Date of : [birth year] Report #: [id number] [facility]. PT STATES HE HAS BEEN HAVING SHARP PRESSURE TO HIS CHEST X11 HOURS ALONG WITH NAUSEA AND VOMITING. DENIES ANY SOA. MOVED WITHOUT INCIDENT TO AMBULANCE VIA STRETCHER. PLACED ON MONITOR AND V/S'S OBTAINED. ASPIRIN ADMINISTERED PER PROTOCOL. 12-LEAD ECG OBTAINED SHOWING SINUS RHYTHM. PT STATES THAT HE HAS PRESCRIBED NITRO BUT COULD NOT FIND IT. 12-LEAD ECG OBTAINED. PAIN REMAINS UNCHANGED AT 8. IV ATTEMPTED WITHOUT ESTABLISHMENT. NITRO ADMINISTERED PER PROTOCOL. TRANSPORTED TO [facility]. REASSESSED ENROUTE. PAIN REMAINS UNCHANGED AT 8. IV ESTABLISHED AND NITRO ADMINISTERED PER PROTOCOL. V/S'S CONTINOUSLY MONITORED ENROUTE. PAIN REMAINS UNCHANGED AT 8. REPORT CALLED TO HOSPITAL. MOVED WITHOUT INCIDENT TO ER HOSPITAL BED. PT CARE TRANSFERRED TO ED RN. Initial Vitals @05:02P: 69,R: 20,BP: 141/94,Pain: 8/10,GCS: 15,SpO2: 100,Revised Trauma: 12, @05:23P: 71,R: 18,BP: 140/95,Pain: 8/10,GCS: 15,Glucose: 101,CO: 0,SpO2: 98,Revised Trauma: 12, @05:05P: 77,R: 18,Pain: 8/10,GCS: 15,CO: 1,SpO2: 100, @05:15P: 74,R: 20,BP: 146/92,GCS: 15,Revised Trauma: 12, Assessments @05:01MENTAL:Person Oriented,Event Oriented,Place Oriented,Time Oriented,SKIN:HEENT:Eyes: Left Pupil: 4-mm,Eyes: Right Pupil: 4-mm,Head/Face: No Abnormalities,Neck/Airway: No Abnormalities,LUNG SOUNDS:General: Nausea,ABDOMEN:General: Nausea,PELVIS//GI:EXTREMITIES:Capillary Refill: Right Upper: < 2 Sec,Capillary Refill: Left Upper: < 2 Sec,Left Arm: No Abnormalities,Right Arm: No Abnormalities,Left Leg: No Abnormalities,Right Leg: No Abnormalities,PULSE:Radial: 2+ Normal,NEURO:No Abnormalities,@05:20MENTAL:Event Oriented,Time Oriented,Person Oriented,Place Oriented,SKIN:HEENT:Head/Face: No Abnormalities,Neck/Airway: No Abnormalities,LUNG SOUNDS:ABDOMEN:PELVIS//GI:EXTREMITIES:Capillary Refill: Right Upper: < 2 Sec,Capillary Refill: Left Upper: < 2 Sec,Left Arm: No Abnormalities,Right Arm: No Abnormalities,PULSE:Radial: 2+ Normal,NEURO:No Abnormalities, Impression Chest Pain / Discomfort Procedures @05:21 Nitrostat - 0.4 Milligrams (mg) - Sublingual Response: Unchanged @05:05 12-Lead ECG Response: UnchangedSucceeded @05:14 IV Therapy - 10cc (20 ga) Site: Antecubital-Right Response: UnchangedFailed @05:20 IV Therapy - Saline Lock 10cc (18 ga) Site: Hand-Left Response: UnchangedSucceeded @05:01 ALS Assessment Response: UnchangedSucceeded @05:02 Stretcher Response: Unchanged [address] [address] EMS Patient Care Report Name: SRINIVASA ART JR Room #: PRE M.R.#: [id number] Admission: Attend Phys: Discharge: Date of : [birth year] Report #: [id number] @[id number] ECG Response: UnchangedSucceeded @05:04 3-Lead ECG Response: UnchangedSucceeded @05:03 Aspirin - 324 Milligrams (mg) - Oral Response: Unchanged @05:14 Nitrostat - 0.4 Milligrams (mg) - Sublingual Response: Unchanged Timeline CHEMIST BIOLOGICAL,12-Lead ECG,Response: UnchangedSucceeded, 04:45,Call Received 04:45,Dispatch Notified 04:46,Dispatched 04:48,En Route 05:00,On Scene 05:01,At Patient 05:01,ALS Assessment,Response: UnchangedSucceeded, 05:02,Stretcher,Response: Unchanged 05:02,BP: 141/94 M,PULSE: 69,RR: 20 R,SPO2: 100 Ox,ETCO2: ,BG: ,PAIN: 8,GCS: 15, 05:03,Aspirin - 324 Milligrams (mg) - Oral,Response: Unchanged 05:04,3-Lead ECG,Response: UnchangedSucceeded, 05:05,12-Lead ECG,Response: UnchangedSucceeded, 05:05,BP: / M,PULSE: 77,RR: 18 R,SPO2: 100 Ox,ETCO2: ,BG: ,PAIN: 8,GCS: 15, 05:14,IV Therapy - 10cc 20 ga Site: Antecubital-Right,Response: UnchangedFailed, 05:14,Nitrostat - 0.4 Milligrams (mg) - Sublingual,Response: Unchanged 05:15,BP: 146/92 M,PULSE: 74,RR: 20 R,SPO2: Ox,ETCO2: ,BG: ,PAIN: ,GCS: 15, 05:15,Depart Scene 05:20,IV Therapy - Saline Lock 10cc 18 ga Site: Hand-Left,Response: UnchangedSucceeded, 05:21,Nitrostat - 0.4 Milligrams (mg) - Sublingual,Response: Unchanged 05:23,BP: 140/95 M,PULSE: 71,RR: 18 R,SPO2: 98 Ox,ETCO2: ,B,PAIN: 8,GCS: 15, 05:26,At Destination 05:54,Call Closed Disclaimer v1.1 Copyright 2021 [employer] This EMS Care Summary contains data elements from the applicable legal record (which may be displayed differently). It is designed to provide pertinent information for the following purposes: continuity of care, clinical quality, and state data reporting. The complete legal record is available to ED staff and administrators of the receiving hospital in [employer]'s Patient Tracker. All data is provided "as is."
[~2021-06-03 05:30] MED LIST changes: +DILTIAZEM ER240 M1 PO; +EFFIENT10 MG PO; +METOPROLOL SUCC50 MG PO
[2021-06-03 05:35] VITALS: BP 108/70
[2021-06-03 06:00] LABS: ABSOLUTE NEUTROPHILS 4.1 thou/uL (1.4-8.2); BASOPHILS 0.5 % (0.0-2.0); EOSINOPHILS 1.5 % (0.0-3.0); HEMATOCRIT 45.6 % (42.0-52.0); HEMOGLOBIN 15.1 gm/dL (14.0-18.0); LYMPHOCYTES 16.7 % (24.0-44.0); MCH 30.9 pg (26.0-34.0); MCHC 33.1 g/dL (28.0-37.0); MCV 93.5 fL (80.0-100.0); MONOCYTES 8.8 % (1.0-8.0); PLATELET COUNT 179 thou/uL (150-400); POLYS 72.5 % (36.0-66.0); RBC 4.88 mil/uL (4.50-6.00); RDW 13.7 % (10.5-14.5); WBC 5.6 thou/uL (4.0-11.0)
[2021-06-03 06:15] LABS: CALCIUM 8.8 mg/dL (8.5-10.1); CREATININE 0.9 mg/dL (0.7-1.3); POTASSIUM 3.7 mmol/L (3.5-5.1)
[2021-06-03 06:25] LABS: ALBUMIN 3.7 g/dL (3.4-5.0); TOTAL BILIRUBIN 0.6 mg/dL (0.2-1.0); TOTAL PROTEIN 6.7 g/dL (6.4-8.2)
--- NOTE | 2021-06-03 07:05 | NUR ---
THIS RN ASSUMES CARE. PT BACK FROM CT SCAN AND C/O MIDSTERNAL CP. PT GROANING AND TEARFUL. PT WAS GIVEN CONTRAST DYE BY CT SCAN, EDP NOTIFIED AND ORDERS GIVEN. PT DENIES SOA, AIRWAY PATENT, 100% ON RA. NEW EKG BEING OBTAINED.
--- NOTE | 2021-06-03 07:18 | NUR ---
PATIENT IS HEARD CALLING FROM ROOM WITH CHEST PAIN ACUTELY DIAPHORETIC AND PALE EKG IS REPEATED AND MD TO BEDSIDE ORDERS RECEIVED NITRO IS GIVEN BY ANOTHER NURSE IN ROOM, PATIENT IS CLUTCHING HIS CHEST AND KUNAL EYED
--- NOTE | 2021-06-03 07:30 | NUR ---
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
[2021-06-03 08:11] LABS: APTT 26.6 Seconds (24.5-32.8); INR 0.96; PROTIME 10.5 Seconds (10.5-12.1)
--- NOTE | 2021-06-03 08:18 | EKG ---
[address] [address] ELECTROCARDIOGRAM REPORT Name: ARTSRINIVASA JR Room #: [facility].#: [id number] Admission: Attend Phys: Discharge: Date of : [birth year] Report #: [id number] [facility] ED Test Date: 2021-06-03 Test Time: 05:31:46 Pat Name: SRINIVASA ART Department: Room: Gender: Community Outreach Director: : 1990 Requested By: Jose Saeed Order Number: [id number] MD: Sixto Marley Measurements Intervals [place] Rate: 74 P: 34 HI: 144 QRS: -56 QRSD: 88 T: -4 QT: 373 QTc: 414 Interpretive Statements Sinus rhythm Inferior infarct, age indeterminate Compared to ECG 01/11/2020 07:14:37 No significant changes Electronically Signed On 06-03-2021 8:18:02 SUMMER NANNY by Sixto Marley [email or web address] <ELECTRONICALLY SIGNED> By: Sixto Marley MD, [facility] 06/03/2118 0531 0531 Sixto Marley MD, FACC /EPI
--- NOTE | 2021-06-03 08:20 | EKG ---
[address] [address] ELECTROCARDIOGRAM REPORT Name: SRINIVASA ART JR Room #: [facility].#: [id number] Admission: Attend Phys: Discharge: Date of : [birth year] Report #: [id number] [facility] ED Test Date: 2021-06-03 Test Time: 07:13:50 Pat Name: SRINIVASA ART Department: Room: Gender: Biomedical Analytical Scientist: : 1990 Requested By: Jay Scherer Order Number: [id number] MD: Sixto Marley Measurements Intervals [place] Rate: 85 P: 37 VT: 161 QRS: -36 QRSD: 91 T: 25 QT: 366 QTc: 436 Interpretive Statements Sinus rhythm Inferior infarct, possibly acute Baseline wander in lead(s) III No previous ECGs available for comparison Electronically Signed On 06-03-2021 8:20:37 KEY SANDER by Sixto Marley [email or web address] <ELECTRONICALLY SIGNED> By: Sixto Marley MD, [facility] 06/03/21819 2 2 Sixto Marley MD, FACC /EPI
[2021-06-03 08:49] LABS: AMP/METHAMP Negative (Negative); BARBITURATES Negative (Negative); BENZODIAZEPINES Negative (Negative); COCAINE Negative (Negative); METHADONE Negative (Negative); OPIATES Negative (Negative); PCP Negative (Negative)
--- NOTE | 2021-06-03 10:05 | NUR ---
DR ROQUE PAGED BY EDP AND DR KING REGARDING EKG AND PT REPORT OF CP. DR ROQUE VERBAL ORDER TO GIVE LAST DOSE OF SL NITROGLYCERIN AND PT WILL BE GOING TO SPINNING ROOM WORKER NEXT ON LIST. PT REPORTS SL NITRO TOOK PAIN FROM 12/03 TO 11/02.
[2021-06-03 10:39] VITALS: BP 141/78
--- NOTE | 2021-06-03 14:22 | EKG ---
[address] [address] ELECTROCARDIOGRAM REPORT Name: ERIC RATLEY Room #: 170-10 ADM IN M.R.#: [id number] Admission: 06/03/21 Attend Phys: Dano Helms MD Discharge: Date of : [birth year] Report #: [id number] [facility] ED Test Date: 2021-06-03 Test Time: 09:49:30 Pat Name: SRINIVASA ART Department: Room: 170 10 Gender: M Pin Or Clip Fastener: YAMILETH : 1990 Requested By: Jay Scherer Order Number: [id number] MD: Erwin Li Measurements Intervals [place] Rate: 62 P: 11 [place]: 153 QRS: -38 QRSD: 91 T: -20 QT: 416 QTc: 423 Interpretive Statements Sinus rhythm Atrial premature complex Inferior infarct, age indeterminate Compared to ECG 06/03/2021 07:13:50 Atrial premature complex(es) now present Myocardial infarct finding still present Electronically Signed On 06-03-2021 14:22:42 MOLD MAKING PLASTICS SHEETS SUPERVISOR by Erwin Li [email or web address] <ELECTRONICALLY SIGNED> By: Erwin Li MD, [facility] 06/03/21 1422 0949 0949 Erwin Li MD, [facility] /EPI
[2021-06-03 17:00] VITALS: BP 138/73
--- NOTE | 2021-06-03 18:05 | NUR ---
PT ARRIVED TO CCU S/P CARDIAC CATH AT 1700. PT HAD STENT PLACE TO MID-RCA WITH R GROIN APPROACH. R GROIN SITE DRESSING IS C/D/I AND SURROUNDING AREA IS SOFT TO PALPATION WITH NO S/S OF HEMATOMA. PT DENIES CHEST PAIN, CHEST PRESSURE, OR SOB. HE IS PLEASANT AND EXPRESSES CONCERN ABOUT XARELTO COST. MDs AWARE OF THIS CONCERN AND SOCIAL WORK HAS BEEN CONSULTED.
[2021-06-03 19:35] VITALS: BP 149/92
--- NOTE | 2021-06-03 19:55 | NUR ---
PT RESTING IN BED TALKING ON PHONE. L GROIN SITE INTACT, NO HEMATOMA, POSITIVE CIRCULATION CHECK. IVF INTACT. PROVIDED HS SNACK.
[2021-06-04 03:54] LABS: HEMATOCRIT 44.1 % (42.0-52.0); HEMOGLOBIN 14.7 gm/dL (14.0-18.0); MCH 31.5 pg (26.0-34.0); MCHC 33.4 g/dL (28.0-37.0); MCV 94.2 fL (80.0-100.0); RBC 4.69 mil/uL (4.50-6.00); RDW 13.6 % (10.5-14.5); WBC 7.5 thou/uL (4.0-11.0)
[2021-06-04 04:11] VITALS: BP 130/68
[2021-06-04 05:06] LABS: ALBUMIN 3.4 g/dL (3.4-5.0); CALCIUM 8.1 mg/dL (8.5-10.1); CREATININE 0.9 mg/dL (0.7-1.3); TOTAL BILIRUBIN 0.7 mg/dL (0.2-1.0); TOTAL PROTEIN 6.3 g/dL (6.4-8.2)
[2021-06-04] MEDS ORDERED: CLOPIDOGREL75 MG PO (07:33)
[2021-06-04] MEDS ORDERED: TOPROL XL25 MG PO (07:33)
[2021-06-04] MEDS ORDERED: ATORVASTATIN CA80 MG PO (07:33)
--- NOTE | 2021-06-04 07:51 | NUR ---
INFORMED CM ASHA PER VIV VALADEZ THAT PATIENT WILL BE NEEDING 30 SUPPLY OF DISCHARGE MEDICATIONS BY [facility]. CM WILL NEED TO SET UP F/U APPOINTMENT WITH DR. COLIN AT [facility].
--- NOTE | 2021-06-04 08:04 | EKG ---
[address] [address] ELECTROCARDIOGRAM REPORT Name: SRINIVASA ART Room #: 218-P ADM IN M.R.#: [id number] Admission: 06/03/21 Attend Phys: Dano Helms MD Discharge: Date of : [birth year] Report #: [id number] [facility] Test Date: 2021-06-04 Test Time: 08:00:01 Pat Name: SRINIVASA ART Department: Room: 218 P Gender: M Orthotist Or Prosthetist: LEVY : 1990 Requested By: Rozina Figueroa Order Number: [id number] MD: Sixto Marley Measurements Intervals [place] Rate: 49 P: 21 RI: 141 QRS: -35 QRSD: 91 T: -16 QT: 463 QTc: 418 Interpretive Statements Sinus bradycardia Inferior infarct, age indeterminate Compared to ECG 06/03/2021 09:49:30 Inferior injury pattern no longer present Atrial premature complex(es) no longer present Electronically Signed On 06-04-2021 8:03:59 THROAT CUTTER by Sixto Marley [email or web address] <ELECTRONICALLY SIGNED> By: Sixto Marley MD, [facility] 06/04/21 08 08 08 Sixto Marley MD, [facility] /EPI
[2021-06-04 08:22] VITALS: BP 114/56
[2021-06-04] MEDS ORDERED: COZAAR 50 MG TA50 MG PO (09:09)
[2021-06-04 10:38] VITALS: BP 114/56
[2021-06-04 11:36] VITALS: BP 114/56
[2021-06-04 11:53] VITALS: BP 128/70
[2021-06-04 12:10] VITALS: BP 114/56
--- NOTE | 2021-06-04 12:11 | NUR ---
CM FOLLOWING FOR DC PLANNING. PT 90 DAYS MEDICATIONS VOUCHED FOR BY CASE MANAGMENT. COST $85. CM DELIVERED MEDS TO PT PRIOR TO DC. CM CONFIRMED PTS ADDRESS PRIOR TO DC. PT WAS GIVEN 4 TABS [place] PRIOR TO DC. THE OTHER TABS TO COMPLETE 90 DAYS SUPPLY WILL BE MAILED TO PTS HOME. CM INFORMED CARDIOLOGY INTERVENTIONAL TECH THAT CM ATTEMPTED TO MAKE APPT FOR F/U WITH DR COLIN INSTRUCTED. WAS INFORMED BY THEIR OFFICE THAT BECAUSE PT HADNT BEEN SEEN IN OVER 3 YEARS THEY NEEDED A REFERRAL. BRUNO SPOKE TO GABI WITH [facility] WHO INSTRUCTED RAHUL IN THE OFFICE WAS SENDING THAT REFERRAL. CM SPOKE TO PT REGARDING ONCE DR COLIN'S OFFICE RECEIVES REFERRAL THEY WILL CALL HIM FOR AN APPT. NO FUTHER CM INTERVENTIONS INDICATED AT THIS TIME.
--- NOTE | 2021-06-05 15:22 | CATHLAB ---
[facility] [place] [address] INVASIVE PROCEDURE REPORT Name: SRINIVASA ART JR Room #: 218-P [facility] [place] Britton#: [id number] Admission: 06/03/21 Attend Phys: Dano Helms MD Discharge: 06/04/21 Date of : [birth year] Report #: [id number] THIS REPORT FOR: cc: FAM - Family physician unknown FAM - Family physician unknown Irvin Alvarez MD [facility] ~ APPROVED REPORT Study performed: 06/03/2021 12:06:43 Patient Details Patient Status: ED Room #: The patient is a 31 year-old male Event Personnel Irvin Alvarez Orthotist Or Prosthetist, Mindi Ramirez RTR Monitor, Lenny Chapa RTR Scrub, Elisabeth Orellana RN crib tender Performed Art Access - R femoral artery* 26126 Initial Mod Sed Same Phys/QHP Gr5y 874907 68530 Mod Sed Same Phys/QHP Ea 339199 [facility] Place w/wo Plasty Single RCA 426071 Left Heart Cath w/or w/o Coronaries [id number] [facility] Indication Chest pain Procedure Narrative The Right Groin^ was infiltrated with 1% Lidocaine subcutaneous anesthesia. A PINNACLE 6FR Sheath #[id number] sheath was inserted into the RFA^. Coronary angiography was performed using coronary diagnostic catheters. The right coronary system was accessed and visualized with a JR4 catheter. The left coronary system was accessed and visualized with a JL4 catheter. The left ventricle was accessed and visualized with a PIGTAIL catheter. Left ventriculogram was performed in 30 degree projection. Closure device was deployed with a 6 Fr MYNXGRIP 6/7F #[id number]. The patient tolerated the procedure well and there were no complications associated with the procedure. There was no hematoma. Intraoperative Conscious Sedation Fentanyl mcg Versed mg Fluoro Time: 11.50 minutes [facility] [place] [address] INVASIVE PROCEDURE REPORT Name: SRINIVASA ART Room #: 218-P [facility] IN M.R.#: [id number] Admission: 06/03/21 Attend Phys: Dano Helms, Discharge: 06/04/21 Date of : [birth year] Report #: [id number] Dose: DAP 28210.70 cGycm2 Contrast Type and Amount: Omnipaque 205 ml Hemodynamics The aortic pressure is 145/75 mmHg with a mean of 102 mmHg. The left ventricular pressure is 139/3 mmHg with a mean of mmHg. The left ventricular end diastolic pressure is 21 mmHg. PCI Technique Lesion Anticoagulation was achieved with Heparin. Percutaneous coronary intervention was performed on the mid right coronary artery. A LAUNCHER 6FR JR 4 #[id number] Guide Catheter was used to engage the ostium. A Luge Wire .014 x 182CM #[id number] Interventional Guidewire was used to cross the lesion. BALLOON DILATION A Balloon catheter Sprinter OTW 3.0 x 12 #[id number] was inserted and inflated up to 12.00atm for 24seconds. Additional Inflation: 12.00atm for 19seconds. STENT DEPLOYMENT A stent XIENCE [place] RX 3.5 X 33 #[id number] was inserted and inflated up to 16.00atm for 25seconds. Additional Inflation: 20.00atm for 21seconds. POST STENT DEPLOYMENT BALLOON DILATION A Balloon catheter Euphora NC RX 4.0 x 20 #[id number] was inserted and inflated up to 20.00atm for 24seconds. Additional Inflation: 20.00atm for 16seconds. Additional Inflation: 20.00atm for 13seconds. 20.00 nelson for 17 seconds Conclusion #1 Successful PTCA stent of a mid RCA dominant vessel total occlusion with extension of the prior stent placement of a 3.5 x 33 skive point Xience stent postdilated with a 4.0 noncompliant balloon RUDOLPH grade III flow 0% residual. #2 Long left main free of disease giving rise to LAD and circumflex. #3 LAD widely patent which extends to the apex no occlusive disease. #4 circumflex is nondominant moderate distribution no occlusive disease. #5 normal left ventricular size with moderate hypokinesis of the inferior base EF 50% range. Recommendations and plan: Continue aggressive risk factor [facility] [address] [place] [address] INVASIVE PROCEDURE REPORT Name: SRINIVASA ART JR Room #: 218-P [facility] IN M.R.#: [id number] Admission: 06/03/21 Attend Phys: Dano Helms, Discharge: 06/04/21 Date of : 88 Report #: [id number] modification. Dual antiplatelet therapy has been initiated. Patient will be transferred back to [facility] in stable condition pain-free. His issue is been noncompliance this was strongly recommended that he continue dual antiplatelet therapy indefinitely. Follow-up will be arranged. <ELECTRONICALLY SIGNED> By: Irvin Alvarez MD, FACC 06/05/21 152 21 21 Irvin Alvarez MD, FACC /INF
== END 2021-06-04 14:38 | disposition home or self-care (01) ==
LOC: ER 05:30 → EROBS 08:40 → 2N 08:40
PROVIDERS: Emergency Medicine; Internal Medicine Cardiovascular Disease; Nurse Practitioner Adult Health; Student in an Organized Health Care Education/Training Program; ADMIT Internal Medicine; ATTEND Internal Medicine
DX: I25.10 Atherosclerotic heart disease of native coronary artery without angina pectoris (principal); I21.4 Non-ST elevation (NSTEMI) myocardial infarction; I10 Essential (primary) hypertension; Z20.822 Contact with and (suspected) exposure to COVID-19; E78.5 Hyperlipidemia, unspecified; K21.9 Gastro-esophageal reflux disease without esophagitis; Z91.14 Patient's other noncompliance with medication regimen; Z79.82 Long term (current) use of aspirin; Z79.899 Other long term (current) drug therapy; Z79.02 Long term (current) use of antithrombotics/antiplatelets; Z91.041 Radiographic dye allergy status; Z91.013 Allergy to seafood
CPT/HCPCS: 10081